=== PATIENT | male | born 1965 | race African-American/Black ===

== ENCOUNTER 2024-09-27 08:43 | Emergency (ER) | payer BC, OTHER ==
[~2024-09-27] VITALS: Ht 180.3 cm; Wt 94.3 kg
[~2024-09-27 08:43] MED LIST: AZOR 10-20 MG1 EACH; HYDROCHLOROTHIA25 MG
[2024-09-27 08:51] VITALS: RESP 18; TEMP 98.3
[2024-09-27 09:30] LABS: BASOPHILS % 0.2 % (0.0-1.0); EOSINOPHILS # (AUTO) 0.1 (0.0-0.4); EOSINOPHILS % 0.3 % (0.0-6.0); HEMATOCRIT 39.5 % (38.2-49.6); HEMOGLOBIN 13.1 g/dL (14.0-18.0); LYMPHOCYTES # (AUTO) 1.3 (1.0-3.2); LYMPHOCYTES % 6.9 % (18.0-39.1); MEAN CORPUSCULAR HEMOGLOBIN 28.7 pg (28-32); MEAN CORPUSCULAR HGB CONC 33.2 g/dL (31-35); MEAN CORPUSCULAR VOLUME 86.4 fL (81-99); MONOCYTES # (AUTO) 1.3 (0.2-0.8); MONOCYTES % 7.2 % (4.4-11.3); NEUTROPHILS # (AUTO) 15.6 (2.1-6.9); PLATELET COUNT 240 x10e3/uL (140-360); RED BLOOD COUNT 4.57 x10e6/uL (4.3-5.7); RED CELL DISTRIBUTION WIDTH 12.5 % (11.7-14.4); WHITE BLOOD COUNT 18.41 x10e3/uL (4.8-10.8)
[2024-09-27 09:45] LABS: BACTERIA,URINE MANY /HPF; COLOR,URINE YELLOW (YELLOW); EPITHELIAL CELLS,URINE RARE /LPF; WBC,URINE (MAN) >50 /HPF (0-5)
[2024-09-27 09:46] LABS: BILIRUBIN,URINE NEGATIVE (NEGATIVE); CLARITY,URINE SL CLOUDY (CLEAR); GLUCOSE, URINE NEGATIVE (NEGATIVE); KETONES,URINE NEGATIVE (NEGATIVE); LEUKOCYTE ESTERASE ,URINE MODERATE (NEGATIVE); NITRITE,URINE POSITIVE (NEGATIVE); PH,URINE 7 (5 - 7); PROTEIN,URINE DIPSTICK >=300 (NEGATIVE)
[2024-09-27 09:50] LABS: ALBUMIN 3.9 g/dL (3.5-5.0); ANION GAP 14.3 mmol/L (8-16); BILIRUBIN,TOTAL 0.9 mg/dL (0.2-1.2); CALCIUM 9.1 mg/dL (8.4-10.2); CREATININE, SERUM 1.39 mg/dL (0.72-1.25); MAGNESIUM 1.9 MG/DL (1.3-2.1); TOTAL PROTEIN 7.3 g/dL (6.5-8.1)
[2024-09-27 09:51] LABS: ALBUMIN/GLOBULIN RATIO 1.1 (0.8-2.0)
[2024-09-27 09:54] LABS: POTASSIUM 3.3 mmol/L (3.5-5.1)
[2024-09-27] MEDS: SODIUM CHLORIDE 0.9% 1000ML 1,000 ML IV STA ×2 (10:37→11:29)
[2024-09-27] MEDS: CEFTRIAXONE 2 GM in SODIUM CHLORIDE 0.9% 100 ML IV ONE (10:37)
[2024-09-27] MEDS: Vancomycin IV 1 GM in SODIUM CHLORIDE 0.9% 250ML 250 ML IV ONE (10:38)
[2024-09-27 10:41] LABS: INR 1.07; PROTHROMBIN TIME 14.6 seconds (11.9-14.5); TROPONIN I 0.01 ng/mL (0-0.300)
[2024-09-27 10:42] LABS: PARTIAL THROMBOPLASTIN TIME 39.1 seconds (23.8-35.5)
[2024-09-27 12:00] VITALS: PULSE 92; O2SAT 98
[2024-09-27] MEDS ORDERED: CEFDINIR300 MG PO (12:10)
[2024-09-27] MEDS ORDERED: FLOMAX0.4 MG PO (12:10)
== END 2024-09-27 12:47 | disposition home or self-care (01) ==
LOC: ER 08:46
DX: R30.0 Dysuria (principal); N39.0 Urinary tract infection, site not specified; N40.0 Benign prostatic hyperplasia without lower urinary tract symptoms; R53.1 Weakness; R53.81 Other malaise; I10 Essential (primary) hypertension; E78.5 Hyperlipidemia, unspecified
CPT/HCPCS: 36415; 74176; 80053; 81001; 82550; 83605; 83735; 84484; 85025; 85610; 85730; 87040; 87086; 87186; 93005; 99284; J0696; J3370; J7030; J7050 ×2

== ENCOUNTER 2024-10-31 09:10 | Emergency (ER) | payer BC, OTHER ==
[~2024-10-31] VITALS: Ht 180.3 cm; Wt 94.3 kg
[~2024-10-31 09:10] MED LIST changes: +CEFDINIR300 MG PO; +FLOMAX0.4 MG PO
[2024-10-31 09:16] VITALS: PULSE 86; RESP 18; TEMP 98.4
[2024-10-31] MEDS: HYDROCODONE/APAP 5MG-325MG TAB PO ONE (10:24)
[2024-10-31] MEDS ORDERED: ULTRAM 50MG50 MG PO (10:32)
[2024-10-31] MEDS: KETOROLAC TROMETHAMINE 30 MG/ML VIAL IM STA (10:34)
[2024-10-31 10:55] VITALS: BP 154/101; PULSE 76; RESP 17; O2SAT 100
== END 2024-10-31 10:57 | disposition home or self-care (01) ==
LOC: ER 09:15
DX: M25.531 Pain in right wrist (principal); X50.1XXA Overexertion from prolonged static or awkward postures, initial encounter; Y92.89 Other specified places as the place of occurrence of the external cause; I10 Essential (primary) hypertension; E78.5 Hyperlipidemia, unspecified
CPT/HCPCS: 73110; 99283; J1885